=== PATIENT | male | born 1970 ===

== ENCOUNTER 2021-07-31 23:36 | Emergency (ER) | payer SELFPAY ==
[~2021-07-31] VITALS: Ht 154 cm; Wt 72.0 kg
[2021-08-01] LABS: BASOPHILS # (AUTO) 0.1 10^3/uL (0.0-0.1); BASOPHILS % (AUTO) 1 % (0-10); EOSINOPHILS # (AUTO) 0.4 10^3/uL (0.0-0.3); EOSINOPHILS % (AUTO) 4 % (0-10); HEMATOCRIT 40 % (40-54); HEMOGLOBIN 13.8 g/dL (13.3-17.7); LYMPHOCYTES # (AUTO) 1.7 10^3/uL (1.0-4.0); LYMPHOCYTES % (AUTO) 18 % (12-44); MEAN CORPUSCULAR HEMOGLOBIN 30 pg (25-34); MEAN CORPUSCULAR HGB CONC 34 g/dL (32-36); MEAN CORPUSCULAR VOLUME 89 fL (80-99); MEAN PLATELET VOLUME 9.5 fL (9.0-12.2); MONOCYTES # (AUTO) 0.8 10^3/uL (0.0-1.0); MONOCYTES % (AUTO) 9 % (0-12); NEUTROPHILS # (AUTO) 6.4 10^3/uL (1.8-7.8); NEUTROPHILS % (AUTO) 68 % (42-75); PLATELET COUNT 272 10^3/uL (130-400); WHITE BLOOD COUNT 9.4 10^3/uL (4.3-11.0)
--- NOTE | 2021-08-01 00:02 | ED General ---
General Chief Complaint: General Problems/Pain Stated Complaint: ABD PAIN Nursing Triage Note: BROUGHT IN BY [facility] FOR C/O HERNIA PAIN, HOMELESSNESS, REPORTS BEING OUT OF MEDICATIONS X 14YEARS Source of Information: Patient (EXTREMELY POOR HISTORIAN--GIVES NON-SENSICAL/NON-RELEVANT ANSWERS TO QUESTIONS), EMS History of Present Illness Date Seen by Provider: Jul 31, 2021 Time Seen by Provider: 23:40 Initial Comments PT ARRIVES VIA EMS--WALKS INTO ER ON HIS OWN PT REPORTEDLY WALKED UP TO THE AMBULANCE AND ASKED TO COME HERE PT IS HOMELESS--BOTH EMS AND PATIENT REPORT THIS PT STATES HE WAS COLD AND HE SAW THE AMBULANCE, SO HE COULD GET WARM--TEMP OUTSIDE IS 20 DEGREES WITH 13 DEGREE [place] PT ARRIVES WEARING NO SHIRT OR COAT, 2 PAIRS OF PANTS AND LONG UNDERWEAR BOTTOMS, SOCKS AND WORK-TYPE BOOTS PT GIVES NON-SENSICAL/NON-RELEVANT ANSWERS WHEN ASKED WHY HE TOOK HIS SHIRT OFF, WHEN HE STATES HE WAS COLD. EMS REPORT THAT A CALL WENT OUT EARLIER FOR PATIENT WALKING DOWN THE ROAD TAKING HIS CLOTHES OFF PT STATES "I BEEN OUT OF MY MEDS FOR A LONG TIME" STATES "THIS HERNIA'S BOTHERING ME" --UNABLE TO STATE HOW LONG HE HAS BEEN HAVING PAIN PT ADMITS TO DRINKING "2 BEERS" NATASHA PT GIVES THE DATE JUNE 16, 2022 STATES HE HAS BEEN OUT OF THE JAIL FOR 56 YEARS ( PT IS ONLY 51 YEARS OLD) DOES NOT KNOW WHERE HE IS--STATES "I THOUGHT I WAS IN [place]" PT STATES HE HAS SCHIZOPHRENIA, DEPRESSION, ANXIETY AND DEMENTIA ( HE MENTIONS DEMENTIA, JUST EMS ARE TALKING ABOUT ANOTHER PATIENT WITH DEMENTIA) PT HAS NO PRIOR VISITS HERE UNDER THE GIVEN NAME AND DATE OF --HE REPEATS HIS NAME, THE SPELLING OF HIS NAME AND DATE OF EXACTLY THE SAME MULTIPLE TIMES/CONSISTENT EVERY TIME. PT STATES HE WAS BORN IN [place], [place] AND RAISED IN [place], BUT STATES "I MOVE AROUND FROM STATE TO STATE, SLEEP ON THE ROAD AND UNDERPASSES" --HE SAYS THIS CONSISTENTLY SEVERAL TIMES. STATES HE HAS BEEN DOING THIS FOR AT LEAST 19 YEARS. Allergies and Home Medications Patient Home Medication List Home Medication List Reviewed: Yes Review of Systems Review of Systems Constitutional: other (VERY DIFFICULT HISTORIAN) Gastrointestinal: see HPI Psychiatric/Neurological: See HPI Past Fadgumd-[id number]-Ahjhuq Hx Patient Social History Tobacco Use?: Yes Tobacco type used: Cigarettes Substance use?: No Alcohol Use?: Yes Alcohol type: Beer, Hard Liquor Pt feels they are or have been: No Past Medical History Surgery/Hospitalization HX: ABDOMINAL HERNAI, SCHIZOPHRENIA, ANXIETY, DEMENTIA, ,DEPRESSION, ALCOHOL ABUSE Neurological: Yes Traumatic Brain Injury Psychosocial: Yes Schizophrenia Physical Exam Vital Signs Vital Signs - First Documented 07/31/21 23:38 Temp 36.1 Pulse 90 Resp 18 B/P (MAP) 144/85 (104) Pulse Ox 98 O2 Delivery Room Air Capillary Refill : Less Than 3 Seconds Height, Weight, BMI Height: '" Weight: lbs. oz. kg; 30.00 BMI Method: General Appearance: No Apparent Distress, WD/WN, Other (REEKS OF CIGARETTES, DIRTY, UNKEMPT, MALODOROUS, SPEECH CLEAR, GAIT STEADY, DOES NOT APPEAR ILL OR TO BE IN ANY DISCOMFORT OR DISTRESS. ) HEENT: PERRL/EOMI, Other (EXTREMELY POOR DENTITION--EXTENSIVE DENTAL CARIES DOWN TO GUMS) Neck: Normal Inspection Respiratory: Normal Breath Sounds, No Accessory Muscle Use, No Respiratory Distress Cardiovascular: Regular Rate, Rhythm, No Murmur Gastrointestinal: Soft, Tenderness (RIGHT INGUINAL AREA. NO OBVIOUS HERNIA PALPATED. ) Extremity: Normal Inspection Neurologic/Psychiatric: Alert, No Motor/Sensory Deficits, corporate travel coordinator II-XII Norm as Tested, Other (ORIENTED TO PERSON, KNOWS HE IS IN HOSPITAL, KNOWS YEAR, BUT NOT MONTH / DATE. ERRATIC/NON-SENSICAL/NON-RELEVANT ANSWERS, AND TALKS RANDOMLY. ABLE TO FOLLOW COMMANDS.) Skin: Normal Color (DARK SKINNED), Warm/Dry, Tattoos/Piercings (EXTENSIVE TATTOOS) Progress/Results/Core Measures Suspected Sepsis SIRS Temperature: Pulse: 90 Respiratory Rate: 18 Laboratory Tests 07/31/21 23:52: White Blood Count 9.4 Blood Pressure 144 /85 Mean: 104 Laboratory Tests 07/31/21 23:52: Creatinine 0.75, Platelet Count 272, Total Bilirubin 0.4 Results/Orders Lab Results Laboratory Tests Test 07/31/21 23:50 07/31/21 23:52 07/31/21 23:59 Range/Units Glucometer 95 70-110 MG/DL White Blood Count 9.4 4.3-11.0 10^3/uL Red Blood Count 4.54 4.30-5.52 10^6/uL Hemoglobin 13.8 13.3-17.7 g/dL Hematocrit 40 40-54 % Mean Corpuscular Volume 89 80-99 fL Mean Corpuscular Hemoglobin 30 25-34 pg Mean Corpuscular Hemoglobin Concent 34 32-36 g/dL Red Cell Distribution Width 13.2 10.0-14.5 % Platelet Count 272 130-400 10^3/uL Mean Platelet Volume 9.5 9.0-12.2 fL Immature Granulocyte % (Auto) 0 % Neutrophils (%) (Auto) 68 42-75 % Lymphocytes (%) (Auto) 18 12-44 % Monocytes (%) (Auto) 9 0-12 % Eosinophils (%) (Auto) 4 0-10 % Basophils (%) (Auto) 1 0-10 % Neutrophils # (Auto) 6.4 1.8-7.8 10^3/uL Lymphocytes # (Auto) 1.7 1.0-4.0 10^3/uL Monocytes # (Auto) 0.8 0.0-1.0 10^3/uL Eosinophils # (Auto) 0.4 H 0.0-0.3 10^3/uL Basophils # (Auto) 0.1 0.0-0.1 10^3/uL Immature Granulocyte # (Auto) 0.0 0.0-0.1 10^3/uL Sodium Level 138 135-145 MMOL/L Potassium Level 3.4 L 3.6-5.0 MMOL/L Chloride Level 107 98-107 MMOL/L Carbon Dioxide Level 19 L 21-32 MMOL/L Anion Gap 12 5-14 MMOL/L Blood Urea Nitrogen 6 L 7-18 MG/DL Creatinine 0.75 0.60-1.30 MG/DL Estimat Glomerular Filtration Rate 108 BUN/Creatinine Ratio 8 Glucose Level 95 70-105 MG/DL Calcium Level 9.4 8.5-10.1 MG/DL Corrected Calcium 9.1 8.5-10.1 MG/DL Magnesium Level 2.0 1.6-2.4 MG/DL Total Bilirubin 0.4 0.1-1.0 MG/DL Aspartate Amino Transf (AST/SGOT) 26 5-34 U/L Alanine Aminotransferase (ALT/SGPT) 13 0-55 U/L Alkaline Phosphatase 75 40-136 U/L Total Protein 7.4 6.4-8.2 GM/DL Albumin 4.4 3.2-4.5 GM/DL Amylase Level 71 25-125 U/L Lipase 73 8-78 U/L Salicylates Level < 5.0 L 5.0-20.0 MG/DL Acetaminophen Level < 10 L 10-30 UG/ML Serum Alcohol 25 H <10 MG/DL Influenza Type A (RT-PCR) Not Detected Not Detecte Influenza Type B (RT-PCR) Not Detected Not Detecte SARS-CoV-2 RNA (RT-PCR) Not Detected Not Detecte Urine Color YELLOW Urine Clarity CLEAR Urine pH 6.5 5-9 Urine Specific [place] 1.015 L 1.016-1.022 Urine Protein NEGATIVE NEGATIVE Urine Glucose (UA) NEGATIVE NEGATIVE Urine Ketones NEGATIVE NEGATIVE Urine Nitrite NEGATIVE NEGATIVE Urine Bilirubin NEGATIVE NEGATIVE Urine Urobilinogen 0.2 < = 1.0 MG/DL Urine Leukocyte Esterase NEGATIVE NEGATIVE Urine RBC (Auto) NEGATIVE NEGATIVE Urine RBC NONE /HPF Urine WBC NONE /HPF Urine Squamous Epithelial Cells RARE /HPF Urine Crystals NONE /LPF Urine Bacteria NEGATIVE /HPF Urine Casts NONE /LPF Urine Mucus NEGATIVE /LPF Urine Culture Indicated NO Urine Opiates Screen NEGATIVE NEGATIVE Urine Oxycodone Screen NEGATIVE NEGATIVE Urine Methadone Screen NEGATIVE NEGATIVE Urine Propoxyphene Screen NEGATIVE NEGATIVE Urine Barbiturates Screen NEGATIVE NEGATIVE Ur Tricyclic Antidepressants Screen NEGATIVE NEGATIVE Urine Phencyclidine Screen NEGATIVE NEGATIVE Urine Amphetamines Screen NEGATIVE NEGATIVE Urine Methamphetamines Screen NEGATIVE NEGATIVE Urine Benzodiazepines Screen NEGATIVE NEGATIVE Urine Cocaine Screen NEGATIVE NEGATIVE Urine Cannabinoids Screen NEGATIVE NEGATIVE My Orders Orders - GEOVANNYWAYNEA K DO Acetaminophen (07/31/21 23:40) Alcohol (07/31/21 23:40) Cbc With Automated Diff (07/31/21 23:40) Comprehensive Metabolic Panel (07/31/21 23:40) Drug Screen Stat (Urine) (07/31/21 23:40) Magnesium (07/31/21 23:40) Ua Culture If Indicated (07/31/21 23:40) Accucheck Stat ONCE (07/31/21 23:40) Covid 19 Inhouse Test (07/31/21 23:40) Influenza A And B By Pcr (07/31/21 23:40) Isolation Central Supply Req (07/31/21 23:40) Salicylate (07/31/21 23:40) Amylase (07/31/21 23:43) Lipase (07/31/21 23:43) Ct Abd/Pelvis Wo(Kidney Stone) (08/01/21 00:01) Ct Head Wo-R/O Stroke (08/01/21 00:07) Vital Signs/I&O 07/31/21 08/01/21 23:38 00:48 Temp 36.1 36.5 Pulse 90 93 Resp 18 16 B/P (MAP) 144/85 (104) 116/75 Pulse Ox 98 100 O2 Delivery Room Air Room Air Capillary Refill : Less Than 3 Seconds Blood Pressure Mean: 104 Point of Care Testing Finger Stick Blood Glucose: 95 Blood Glucose Action Taken: ERP NOTIFIED Progress Note : Progress Note GIVEN WARM BLANKETS ON ARRIVAL PT REMAINS COOPERATIVE AND RESPECTFUL AND THANKED STAFF NO COMPLAINTS FOR REMAINDER OF ER STAY RESTED QUIETLY PT DID NOT APPEAR CONFUSED OR HAVING ERRATIC SPEECH AT DISMISSAL AT DISMISSAL, PT ASKS FOR A BLANKET--STATES "IT'S TOO COLD FOR ME TO GO OUTSIDE" AND WAS DISMISSED WITH HOSPITAL SCRUB TOP AND A BLANKET PT WILL BE ALLOWED TO REMAIN IN ER WAITING ROOM UNTIL SUN COMES UP, AND WAS ADVISED THAT HE WOULD BE ASKED TO LEAVE PREMISES AT THAT TIME, WE ARE NOT A HOMELESS NURSING HOME AND THERE IS NOT ONE IN [place]. DID ADVISE HIM OF [facility] IN [place]. Diagnostic Imaging Comments CT HEAD--LEFT FRONTAL ENCEPHALOMALACIA, NO ACUTE PROCESS--PER [facility] VIA FAX AT 0044 CT ABDOMEN/PELVIS--NO ACUTE PROCESS, PER [facility] VIA FAX AT 0044 Reviewed: Reviewed by Me Departure Impression Primary Impression: Homelessness Disposition: 01 HOME, SELF-CARE Condition: Stable Departure-Patient Inst. Decision time for Depature: 00:45 Referrals: UNKNOWN (PCP) Primary Care Physician Patient Instructions: Schizophrenia (DC) Add. Discharge Instructions: DRINK LOTS OF WARM LIQUIDS FOLLOW UP WITH OF CHOICE NEEDED All discharge instructions reviewed with patient and/or family. Voiced understanding. PATRICIA SMALL DO Aug 01, 2021 00:02
[2021-08-01 00:06] LABS: CHLORIDE 107 MMOL/L (98-107); POTASSIUM 3.4 MMOL/L (3.6-5.0); SODIUM 138 MMOL/L (135-145)
[2021-08-01 00:07] LABS: ALBUMIN 4.4 GM/DL (3.2-4.5)
[2021-08-01 00:08] LABS: CALCIUM 9.4 MG/DL (8.5-10.1)
[2021-08-01 00:09] LABS: AMYLASE 71 U/L (25-125); GLUCOSE 95 MG/DL (70-105); TOTAL PROTEIN 7.4 GM/DL (6.4-8.2)
[2021-08-01 00:09] LABS: BILIRUBIN,URINE NEGATIVE (NEGATIVE); CLARITY,URINE CLEAR; COLOR,URINE YELLOW; GLUCOSE, URINE (UA) NEGATIVE (NEGATIVE); KETONES,URINE NEGATIVE (NEGATIVE); LEUKOCYTE ESTERASE ,URINE NEGATIVE (NEGATIVE); NITRITE,URINE NEGATIVE (NEGATIVE); PH,URINE 6.5 (5-9); PROTEIN,URINE NEGATIVE (NEGATIVE)
[2021-08-01 00:10] LABS: CARBON DIOXIDE 19 MMOL/L (21-32)
[2021-08-01 00:11] LABS: BILIRUBIN,TOTAL 0.4 MG/DL (0.1-1.0)
[2021-08-01 00:13] LABS: ALKALINE PHOSPHATASE 75 U/L (40-136); CREATININE SERUM 0.75 MG/DL (0.60-1.30); GFR ESTIMATED 108
[2021-08-01 00:14] LABS: BUN/CREATININE RATIO 8
[2021-08-01 00:15] LABS: ACETAMINOPHEN < 10 UG/ML (10-30)
[2021-08-01 00:16] LABS: ALANINE AMINOTRANSFERASE 13 U/L (0-55); SALICYLATE < 5.0 MG/DL (5.0-20.0)
[2021-08-01 00:17] LABS: LIPASE 73 U/L (8-78)
[2021-08-01 00:18] LABS: AMPHETAMINE SCREEN, URINE NEGATIVE (NEGATIVE); BARBITURATE SCREEN URINE NEGATIVE (NEGATIVE); BENZODIAZEPINES SCREEN URINE NEGATIVE (NEGATIVE); CANNABINOID SCREEN, URINE NEGATIVE (NEGATIVE); COCAINE SCREEN URINE NEGATIVE (NEGATIVE); METHADONE STAT NEGATIVE (NEGATIVE); METHAMPHETAMINE SCREEN URINE S NEGATIVE (NEGATIVE); OPIATE SCREEN URINE NEGATIVE (NEGATIVE); OXYCODONE STAT NEGATIVE (NEGATIVE); PROPOXYPHENE STAT NEGATIVE (NEGATIVE); TRICYCLIC ANTIDEPRESSANTS SCRE NEGATIVE (NEGATIVE)
[2021-08-01 00:19] LABS: BACTERIA,URINE NEGATIVE /HPF; SQUAMOUS EPITHELIAL CELL,UR RARE /HPF
[2021-08-01 00:48] VITALS: BP 116/75
--- NOTE | 2021-08-01 06:35 | Diagnostic Imaging Report ---
PROCEDURE: CT head wo r/o stroke. TECHNIQUE: Multiple contiguous axial images were obtained through the brain without the use of intravenous contrast. Auto Exposure Controls were utilized during the CT exam to meet ALARA standards for radiation dose reduction. INDICATION: Neurologic deficit. Comparison is made with prior examination from 02/12/2021. FINDINGS: The ventricles and sulci are within normal limits. There is some left frontal encephalomalacia. There is no hydrocephalus. There is no midline shift. There is no mass, hemorrhage or extra-axial fluid collection. There has been a previous left frontal craniotomy. There is mild mucosal thickening of the left maxillary sinus. Remaining sinuses and mastoid air cells are clear. IMPRESSION: No acute intracranial abnormality. Unchanged chronic appearing encephalomalacia in the left frontal lobe. Dictated by: Dictated on workstation # [id number]
--- NOTE | 2021-08-01 06:42 | Diagnostic Imaging Report ---
PROCEDURE: CT urinary tract, rule out kidney stone. TECHNIQUE: Multiple contiguous axial images were obtained through the abdomen and pelvis without the use of intravenous contrast. Auto Exposure Controls were utilized during the CT exam to meet ALARA standards for radiation dose reduction. INDICATION: Right lower quadrant pain. COMPARISON: No prior studies are available for comparison. FINDINGS: The lung bases are clear. The liver and gallbladder are unremarkable. There is no biliary ductal dilatation. Pancreas and spleen are unremarkable. No adrenal mass is detected. No renal or ureteral calculi are seen. There is no hydronephrosis. The bladder is unremarkable. Aorta is nonaneurysmal. There is moderate stool throughout the colon suggesting constipation. Bowel loops are non-obstructed. Appendix is unremarkable in the right lower quadrant. There is no free fluid or fluid collection. Prostate is unremarkable. IMPRESSION: 1. No evidence of urinary tract calculi or obstruction. 2. No CT evidence of acute appendicitis. 3. Moderate stool suggestive of constipation. Dictated by: Dictated on workstation # [id number]
== END 2021-08-01 01:17 | disposition home or self-care (01) ==
LOC: ER 23:38
DX: Z59.00 Homelessness unspecified (principal); Z87.820 Personal history of traumatic brain injury; Z72.0 Tobacco use; Z20.822 Contact with and (suspected) exposure to COVID-19
CPT/HCPCS: 70450; 74176; 80053; 80306; 81000; 82150; 82947; 83690; 83735; 85025; 87636; 93041; 99284; G0480 ×3; 36415; 80320; 80329